=== PATIENT | female | born 1930 | race Caucasian/White ===

== ENCOUNTER 2017-10-16 20:14 | Observation (INO) | payer OTHER ==
--- NOTE | 2017-10-16 20:24 | CPEKG ---
Heart Rate: 71 RR Interval: 845 P-R Interval: 192 QRSD Interval: 108 QT Interval: 408 QTC Interval: 444 P Cornwall: 24 QRS Cornwall: 18 T Wave Cornwall: 12 EKG Severity - ABNORMAL ECG - EKG Impression: SINUS RHYTHM EKG Impression: PROBABLE LEFT VENTRICULAR HYPERTROPHY EKG Impression: PROBABLE INFERIOR INFARCT, AGE INDETERMINATE EKG Impression: CONSIDER ANTERIOR INFARCT Electronically Signed By: Jeremias Lizarraga 16-Oct-2017 21:42:22
[2017-10-16] MEDS ORDERED: NS 1,000 ML IV ONE (20:44)
--- NOTE | 2017-10-16 20:48 | EDPHY ---
H & P Time Seen by Provider: 10/16/17 20:29 HPI/ROS: HPI Fainting episode. 87-year-old female by ambulance. Her is at the bedside. She was at home. She was sitting on a stool for a prolonged period of time. She had had 1 -2 cocktails. She stood up from the stool suddenly felt lightheaded and went to the ground. reports that she struck her head on the corner of a wall on the right posterior aspect of her skull. He reports she was unconscious for about 1-2 minutes. She denies any associated headache. No associated shortness of breath, palpitations, chest pain. She denies neck pain but she is in a cervical collar that was put on by EMS. No loss of sensation or weakness in her extremities. There was no seizure activity according to the . ROS: Constitutional: No fever, no chills. As above. Eyes: No discharge. No changes in vision. ENT: No sore throat. No nasal congestion or rhinorrhea. Respiratory: No cough. No shortness of breath. Cardiac: No chest pain, no palpitations. Gastrointestinal: No abdominal pain, no vomiting, no diarrhea. Genitourinary: No hematuria. No dysuria or increased frequency with urination. Musculoskeletal: No back pain. No neck pain. No myalgias or arthralgias. Skin: No rashes. Neurological: No headache. No focal weakness or altered sensation. Past medical history: Hypothyroid. No other significant past medical history. She takes an aspirin daily. No other anticoagulants or antiplatelet medications. Social history: Drinks alcohol socially. Here with her . Nonsmoker. Physical Exam: General Appearance: Alert, no distress. She is clinically sober. This patient is responding to questions appropriately and in full sentences. This patient appears well-hydrated and well-nourished. Head: Normocephalic atraumatic except for a right-sided posterior parietal scalp hematoma about the size of a quarter. No bony step-off or deformity noted on palpation of this area. Face: Facial bones are stable on palpation. Eyes: Pupils equal and round and reactive to light, no pallor or injection. No lid erythema or edema. ENT, Mouth: Mucous membranes moist. Dentition is intact. No malocclusion of the jaw. No tongue lacerations or abrasions. Pharynx is clear. The bilateral nasal canals are clear. No septal hematoma. Respiratory: There are no retractions, lungs are clear to auscultation with good air movement bilaterally. Chest wall is stable to AP and lateral palpation. Cardiovascular: Regular rate and rhythm. No murmur. Gastrointestinal: Abdomen is soft and nontender, no masses, bowel sounds normal. Neurological: Motor sensory function is intact. Cranial nerves are normal. Cerebellar function intact. Skin: Warm and dry, no rashes. No lacerations, abrasions or contusions. Musculoskeletal: Neck is supple and nontender. The trachea is midline. No midline cervical, thoracic, lumbar or sacral tenderness on palpation. No flank tenderness on palpation. Extremities are symmetrical, full range of motion. All joints in the bilateral upper and bilateral lower extremities range without pain or impingement. No tenderness on palpation of the long bones in the bilateral upper and bilateral lower extremities. Psychiatric: No agitation. No depression. Database: EKG: EKG time is 8:21 p.m.; EKG shows a narrow complex normal sinus rhythm with a ventricular rate of 71. Probable left ventricular hypertrophy The DE, QRS, QT intervals are within normal limits. There are no ST-T wave changes indicative of ischemic or injury pattern. No evidence of right heart strain. Interpreted by me. Imaging: CT scan of head without contrast: Significant for a small subarachnoid hemorrhage right posterior parietal with a likely small contrecoup type injury. No mass effect or shift. Results were discussed with staff radiologist Dr. Abiel Aragon. Please see his report for further details. Procedures: Emergency department course: 8:30 p.m., cervical collar clinically cleared by myself after her initial evaluation. Vital signs reviewed and are normal. IV placed. She was placed on a cardiac cath lab technologist. She will be started on IV normal saline with 500 cc to be given over the next hour. She consents to CT imaging of her head. EKG obtained and reviewed by myself. Her presentation is consistent with a vasovagal syncopal event. 10:00 p.m., patient up and ambulatory to the bathroom with assistance. Results of CT scan discussed with patient and family. Need for admission for observation or repeat CT scan discussed. Subarachnoid hemorrhage likely traumatic from the fall. Patient denied any headache prior to syncopal event. Neurosurgery paged. 10:30 p.m., spoke with Dr. Joaquin Torrez, neurosurgeon on-call. Case discussed with him in detail. He will admit this patient directly to the neurosurgical service for observation overnight and repeat CT imaging later in the morning. This plan was discussed with the patient and family. All their questions were answered. The patient was admitted in stable condition to the step-down unit under the care of Dr. Keller. Differential Diagnosis: The differential diagnosis on this patient includes but is not limited to vasovagal syncope, alcohol intoxication, traumatic subarachnoid hemorrhage. Arrhythmia, pulmonary embolism, acute coronary syndrome, atraumatic subarachnoid hemorrhage unlikely. This represents a partial list of diagnoses considered. These considerations are based on history, physical exam, past history, reassessment and diagnostic testing. Smoking Status: Never smoked Constitutional: Initial Vital Signs Temperature (C) 36.6 C 10/16/17 20:17 Heart Rate 71 10/16/17 20:17 Respiratory Rate 16 10/16/17 20:17 Blood Pressure 127/81 H 10/16/17 20:17 O2 Sat (%) 95 10/16/17 20:17 Allergies/Adverse Reactions: ibuprofen [From Advil] Allergy (Intermediate, Verified 10/16/17 20:22) Other-Enter Comments WILD MUSHROOMS Allergy (Intermediate, Uncoded 10/16/17 20:22) Diarrhea Home Medications: Medication Instructions Recorded Glucosamine HCl 0 mg PO 06/23/12 Levothyroxine [Synthroid 112 mcg 112 mcg PO DAILY06 06/23/12 (RX)] Taiban-3 Fatty Acids [Fish Oil 1000 2,000 mg PO DAILY 06/23/12 mg (OTC)] Vitamin D Oil 3 drops 06/23/12 Medical Decision Making - Diagnostics Imaging Results: Imaging Impressions Head CT 10/16/17 20:45 Impression: 1. Senescent features with age-related cerebral cortical atrophy, and chronic microvascular ischemic gliosis. 2. There is a small posterior superior right parietal scalp hematoma, and there appears to be some very mild superior posterior right frontal subarachnoid hemorrhage, as well as similar contrecoup findings above the left sylvian fissure. Short-term CT reevaluation is suggested. If there is further clinical concern regarding the patient's symptoms, MR imaging is suggested, if not otherwise contraindicated. Findings were discussed with Jeremias Lizarraga MD at 21:53, on 10/16/2017. - Data Points Laboratory Results: Laboratory Results 10/16/17 20:25 10/16/17 20:25 10/16/17 10/16/17 20:25 20:25 WBC 7.09 10^3/uL 10^3/uL (3.80-9.50) RBC 4.48 10^6/uL 10^6/uL (4.18-5.33) Hgb 14.7 g/dL g/dL (12.6-16.3) Hct 42.8 % % (38.0-47.0) MCV 95.5 fL fL (81.5-99.8) MCH 32.8 pg pg (27.9-34.1) MCHC 34.3 g/dL g/dL (32.4-36.7) RDW 13.4 % % (11.5-15.2) Plt Count 196 10^3/uL 10^3/uL (150-400) MPV 11.2 fL fL (8.7-11.7) Neut % (Auto) 56.8 % % (39.3-74.2) Lymph % (Auto) 31.7 % % (15.0-45.0) Nuckolls % (Auto) 8.5 % % (4.5-13.0) Eos % (Auto) 1.8 % % (0.6-7.6) Baso % (Auto) 0.8 % % (0.3-1.7) Nucleat RBC Rel Count 0.0 % % (0.0-0.2) Absolute Neuts (auto) 4.02 10^3/uL 10^3/uL (1.70-6.50) Absolute Lymphs (auto) 2.25 10^3/uL 10^3/uL (1.00-3.00) Absolute Monos (auto) 0.60 10^3/uL 10^3/uL (0.30-0.80) Absolute Eos (auto) 0.13 10^3/uL 10^3/uL (0.03-0.40) Absolute Basos (auto) 0.06 10^3/uL 10^3/uL (0.02-0.10) Absolute Nucleated RBC 0.00 10^3/uL 10^3/uL (0-0.01) Immature Gran % 0.4 % % (0.0-1.1) Immature Gran # 0.03 10^3/uL 10^3/uL (0.00-0.10) Sodium 141 mEq/L mEq/L (135-145) Potassium 3.7 mEq/L mEq/L (3.5-5.2) Chloride 102 mEq/L mEq/L (97-110) Carbon Dioxide 22 mEq/l mEq/l (22-31) Anion Gap 17 mEq/L H mEq/L (8-16) BUN 29 mg/dL H mg/dL (7-23) Creatinine 1.2 mg/dL H mg/dL (0.6-1.0) Estimated GFR 42 Glucose 107 mg/dL H mg/dL (70-100) Calcium 9.7 mg/dL mg/dL (8.5-10.4) Ethyl Alcohol 235 mg/dL H mg/dL (0-10) Medications Given: Discontinued Medications Sodium Chloride (Ns) 1,000 mls @ 0 mls/hr IV ONCE ONE; Wide Open PRN Reason: Protocol Stop: 10/16/17 20:45 Last Admin: 10/16/17 21:28 Dose: 1,000 mls Departure - Departure Disposition: [facility] Acute Clinical Impression: Syncope, Subarachnoid hemorrhage, Alcohol intoxication
[2017-10-16 20:51] LABS: PLATELET COUNT 196 10^3/uL (150-400)
[2017-10-16] MEDS ORDERED: hydrALAZINE 20 MG/ML VIAL IVP PRN (22:41)
[2017-10-16] MEDS ORDERED: NS 1,000 ML IV SCH (22:45)
[2017-10-16] MEDS ORDERED: ACETAMINOPHEN 500 MG TAB PO PRN (22:46)
[2017-10-16] MEDS ORDERED: ONDANSETRON 4 MG/2 ML VIAL IVP PRN (22:46)
[2017-10-16] MEDS ORDERED: HYDROCODONE/APAP 5/325 TAB PO PRN (22:49)
[2017-10-16] MEDS ORDERED: HYDROmorphONE/DILAUDID 1 MG/ML INJ IVP PRN (22:50)
--- NOTE | 2017-10-17 09:09 | NEUSURGPN ---
Assessment/Plan: Patient seen by neurosurgery at 0735. Neuro intact with small tSAH. Appreciate medicine consultation on patient. Okay to transfer to floor with q4 hour neuro checks. Discussed with Dr. Hughes. Please see consult note for more detail Neurosurgery Physical Exam - Vitals, I&O, Labs I and O 10/16/17 10/17/17 10/18/17 05:59 05:59 05:59 Intake Total 1621 Balance 1621 Weight 72.3 kg Intake: Oral (ml) 0 IV Infused (ml) 1621 Ns 1,000 ml @ 70 mls/hr 621 IV CONT STEFFI Rx#: [id number] Other: Number of Voids Toilet 1 1 Number of Stools Toilet 0 Vital Signs Temp Pulse Resp BP Pulse Ox 36.8 C 69 11 L 104/52 L 95 10/17/17 07:34 10/17/17 07:34 10/17/17 07:34 10/17/17 07:34 10/17/17 07:34 ICD10 Worksheet Patient Problems: Problems Problem Status Onset Alcohol intoxication Acute Subarachnoid hemorrhage Acute Syncope Acute
--- NOTE | 2017-10-17 09:42 | ASMTCMCOM ---
CM Note CM Note Notes: 87yr female admitted after a fall: syncope, SAH, ETOH. She has a Hx of hypothyroid. Lives with her . Her son Sony is her MPOA. Therapies to eval for discharge needs. CM to follow. Date Signed: 10/17/2017 09:41 AM Electronically Signed By:Lexis Fletcher LCSW
--- NOTE | 2017-10-17 09:52 | GHP ---
[f rep st] HISTORY AND PHYSICAL DATE OF ADMISSION: 10/16/2017 REASON FOR ADMISSION: Status post fall with traumatic subarachnoid hemorrhage. HOSPITAL COURSE/HISTORY/MAJOR MEDICAL FINDINGS: The patient is an 87-year-old female who was having dinner with her family and fell off her stool. She had had 1-2 cocktails at this time. 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 She is also on a low-salt diet, as well as a di uretic for this as well. This morning, she denies any headaches, any nausea, any dizziness. She campuzano s have a little bit of tenderness over where she hit her head. She denies any neck pain, any arm num bness, tingling, pain or weakness. Denies any chest pain, shortness of breath, or palpitations. REVIEW OF SYSTEMS: Review of systems is negative other than what is stated in the HPI. Please see p ertinent negatives and pertinent positives. PAST MEDICAL HISTORY: Significant for hypothyroidism, BPPV, history of cervical cancer. PAST SURGICAL HISTORY: Significant for surgery for her cervical cancer. SOCIAL HISTORY: The patient will occasionally have 1-2 cocktails, similar to what she had last night . She lives with her . She has never smoked. ALLERGIES: Ibuprofen and wild mushrooms. MEDICATIONS: Home medications include glucosamine chondroitin, Synthroid 125 mcg 1 p.o. daily, and o gisele-3 fatty acids. She told me she does take a diuretic, though it is not listed on her medication reconciliation. She takes triamterene/hydrochlorothiazide 37.5 one p.o. daily. FAMILY HISTORY: Her father of a stroke, he also had some coronary artery disease. PHYSICAL EXAM: VITAL SIGNS: BP 104/52, heart rate is 69, respiratory rate is 11, she is 95% on room air, temperature is 36.8. GENERAL: The patient is in no acute distress. She is alert and oriented x4. She answers all questions appropriately. Her affect is appropriate to the given situation. HE ENT: EOMI. PERRLA. Her face is symmetric. NEUROLOGIC: The patient is 5/5 and equal in her bilate ral upper and bilateral lower extremities including her deltoids, triceps, biceps, wrist flexors, ext ensors, interossei, intrinsic pusher operator, iliopsoas, hamstrings, quadriceps, plantar flexion, dorsiflexion, and EHL. Sensation is intact in bilateral upper and bilateral lower extremities. DIAGNOSTIC REVIEW: The patient underwent a head CT, which demonstrated age-related cerebral cortical atrophy with a small posterior superior right parietal scalp hematoma and some very mild superior po sterior right frontal traumatic subarachnoid hemorrhage with a similar contrecoup finding above the l eft sylvian fissure. ASSESSMENT: The patient is an 87-year-old female who sustained a traumatic subarachnoid hemorrhage y esterday after falling from a stool. She did have a positive loss of consciousness at that time, and does not recall events until she was in the ambulance [facility]. She d oes have a history of benign positional vertigo, for which she takes a diuretic and has a low sodium diet. Her sodium this morning was 141, which is within range. I did discuss this with her medical p sonido as well, and at this point in time, the likely cause of her fall is potentially her blood pre ssure diuretic medication and they have seen her and recommended that she take her blood pressure sia or to taking her medication in the morning. From a neurological standpoint, [facility] She is okay to be transferred to the floor with q.4 hour neuro checks. We will continue to see how she does today and may work toward disposition planning if no changes. The patient will be seen by both Dr. Hughes as well today. This case was discussed in detail with him and he has reviewed her imaging. /[id number]/MODL
--- NOTE | 2017-10-17 10:26 | SOAPPROG ---
SOAP Progress Note Assessment/Plan: Assessment: 87 yo female admitted for observation after falling off of a stool at home and hitting her head with LOC. CT confirmed small subarachnoid hemorrhage. Plan: Fall- suspect that ETOH and diuretic combo contributed to worsened hypotension and could be the cause of Tish's fall. Discussed blood pressure monitoring daily prior to taking diuretic to avoid hypotension, particularly as she is running low this AM without any diuretic onboard (SBP 90s). Subarachnoid hemorrhage- small subarachnoid on CT last evening. Neuro exam this AM is grossly normal and without any red flags. Per neuro, likely not necessary to repeat CT but will be seen by Dr. Hughes prior to discharge for final word. Benign paroxysmal positional vertigo- currently being seen by Dr. Hall who started her on low sodium diet and diuretic. Pt has experienced improvement in her vertigo and dizziness sx and has not had any episodes since August, however as discussed above suspicious of combo of diuretic + etoh. Dispo- likely home today pending Dr. Hughes's assessment. Will plan to have her f/u in the office towards the end of the week, sooner for any concerns or neuro changes 10/17/17 10:26 Subjective: Tish is sitting up in her chair this AM. She says that she experienced some dizziness when getting up out of her bed to the chair. She denies any CASTRO or neuro changes and is eager to get home. Objective: Vital Signs Temp Pulse Resp BP Pulse Ox 36.8 C 69 11 L 104/52 L 95 10/17/17 07:34 10/17/17 07:34 10/17/17 07:34 10/17/17 07:34 10/17/17 07:34 10/16/17 10/17/17 10/18/17 05:59 05:59 05:59 Intake Total 1621 Balance 1621 Gen- AAOx3 Head- normocephalic, atraumatic EENT- PEERL, EOMI Resp- LCTAB, no wheezing rhonchi, rales CV- S1S2, RRR, no murmurs, rubs gallops Abd- SNT, nondistended Extremities- without edema Neuro- CN1-12 grossly intact, normal strength and sensation, speech NL, cognition intact ICD10 Worksheet Patient Problems: Problems Problem Status Onset Alcohol intoxication Acute Subarachnoid hemorrhage Acute Syncope Acute
[2017-10-17 13:42] VITALS: BP 112/65
--- NOTE | 2017-10-17 15:02 | ASMTLACE ---
LACE Length of stay for Answers: Less than 1 day current admission Acuity / Level of Answers: No Care: Did the patient have an inpatient admission? Comorbidities - select Answers: Other Notes: Syncope, SAH all that apply # of Emergency department Answers: 1-2 visits in the last 6 months Social determinants Answers: History of substance abuse (ETOH, street drugs, prescription drugs, etc.) Score: 5 Date Signed: 10/17/2017 09:35 AM Electronically Signed By:Lexis Fletcher LCSW
--- NOTE | 2017-10-19 13:42 | ASDISCHSUM ---
Discharge Information Plan Status:Home with No Needs Medically Cleared to Leave:10/17/2017 Discharge Date:10/17/2017 02:30 PM CM D/C Disposition:Home, Routine, Self-Care ADT D/C Disposition:Home, Routine, Self-Care Projected Discharge Date:10/17/2017 03:00 PM Transportation at D/C:Family Discharge Delay Reason: Follow-Up Date:10/17/2017 03:00 PM Discharge Slot: Final Diagnosis:Fall: syncope, SAH, ETOH Placement Information Patient Contact Information Contact Name:LUNA Relationship:Son Address:[address] Work Phone: [facility]:[place] Alternate Phone: [facility]/Zip Code:[place] [address] Email: Financial Information Financial Class:Medicare Primary Plan Desc:MEDICARE OUTPATIENT Primary Plan Number:[id number] Secondary Plan Desc:VANESSA MEDICARE SUPPLEMENT Secondary Plan Number:[id number] Assessment Information LACE LACE Length of stay for Answers: Less than 1 day current admission Acuity / Level of Answers: No Care: Did the patient have an inpatient admission? Comorbidities - select Answers: Other Notes: Syncope, SAH all that apply # of Emergency department Answers: 1-2 visits in the last 6 months Social determinants Answers: History of substance abuse (ETOH, street drugs, prescription drugs, etc.) Score: 5 Date Signed: 10/17/2017 09:35 AM Electronically Signed By:Lexis Fletcher LCSW [facility] CM Progress Note CM Note CM Note Notes: 87yr female admitted after a fall: syncope, SAH, ETOH. She has a Hx of hypothyroid. Lives with her . Her son Sony is her MPOA. Therapies to eval for discharge needs. CM to follow. Date Signed: 10/17/2017 09:41 AM Electronically Signed By:Lexis Fletcher LCSW Case Management Discharge Plan Note Case Management Discharge Discharge Order Complete? Answers: Yes Patient to Obtain Answers: via Family Medications Transportation Arranged Answers: Family/Friends Transport will Pick (Date 10/17/2017 03:00 PM & Time) Family Notified Answers: Yes Notes: Family to transport Discharge Comments Notes: Patient has been discharged home with 24 hr supervision. at home. Patient declined HC. Date Signed: 10/17/2017 02:59 PM Electronically Signed By:Lexis Fletcher LCSW Intervention Information
== END 2017-10-17 14:30 | disposition home or self-care (01) ==
LOC: EDUNIT# → F2N 23:10
PROVIDERS: ADMIT Neurological Surgery; ATTEND Neurological Surgery
DX: S06.6X1A Traumatic subarachnoid hemorrhage with loss of consciousness of 30 minutes or less, initial encounter (principal); R55 Syncope and collapse; F10.120 Alcohol abuse with intoxication, uncomplicated; Y90.7 Blood alcohol level of 200-239 mg/100 ml; T50.2X5A Adverse effect of carbonic-anhydrase inhibitors, benzothiadiazides and other diuretics, initial encounter; I95.9 Hypotension, unspecified; E86.9 Volume depletion, unspecified; S00.03XA Contusion of scalp, initial encounter; R40.2411 Glasgow coma scale score 13-15, in the field [EMT or ambulance]; W19.XXXA Unspecified fall, initial encounter; Y99.8 Other external cause status; Y92.019 Unspecified place in single-family (private) house as the place of occurrence of the external cause; E03.9 Hypothyroidism, unspecified; H81.10 Benign paroxysmal vertigo, unspecified ear; Z85.41 Personal history of malignant neoplasm of cervix uteri; Z82.49 Family history of ischemic heart disease and other diseases of the circulatory system; Z82.3 Family history of stroke
CPT/HCPCS: 70450; 92523; 93005; 97116; 97161; 97166; 97535; G0378; G8978; G8979; G8987; G8988; G9168; G9169; G9170; G0480